=== PATIENT | male | born 1965 | race Hispanic/Latino ===

== ENCOUNTER 2020-01-21 23:38 | Observation (INO) | payer SELFPAY ==
[~2020-01-21] VITALS: Ht 177.8 cm; Wt 95.3 kg
--- OUTSIDE RECORDS SUMMARY | 2020-01-21 23:57 | XMS REPORT | Continuity of Care Document ---
Author Author [facility] Organization [facility] Address [address] [place] [address] Phone Unavailable Care Team Providers Care Wildlife Conservationist Name Role Phone Unavailable Unavailable Payers Payer Name Policy Type Policy Number Effective Date Expiration Date S ource Problems This patient has no known problems. Allergies, Adverse Reactions, Alerts Allergy Name Allergy Type Status Severity Reaction(s) Onset Date Inacti ve Date Treating Clinician Comments Source No Known Allergies DA Active U 2019-06-27 00:00:00 [facility] Medications This patient has no known medications. Procedures This patient has no known procedures. Results Test Description Test Time Test Comments Results Result Comments Source - XR KNEE 4 + V RT 2019-06-27 13:55:00 FAX: Antoni Ramirez MD [phone] [place]: St: REG FAX: Ava Kiran Name: SIOMARALLUVIAMIKE [facility] : 1965 Age/S: 54/M Regulo Nicholson Unit #: [id number] Loc: [place] [address] Phys: Ava Kiran [employer] Acct: [id number] Dis Date: Status: REG ER PHONE #: [phone] Exam Date: 06/27/2019 1321 FAX #: [phone] Reason: pain and swelling EXAMS: CPT CODE: [id number] XR KNEE 4 + V RT [id number] EXAM: Right knee, 4 views; INFORMATION: Painful swelling; FINDINGS: There is moderate narrowing of the medial compartment of the right knee joint. Small osteophytes along the cranial aspect of the patella. Otherwise, imaged bones are intact; no evidence of fracture or dislocation. No radiopaque foreign bodies. IMPRESSION: 1. Moderate osteoarthritis involving primarily the medial compartment of the right knee joint. 2. No evidence of acute traumatic changes. Location code: [facility] at 2402 Reported and signed by: Saran Mireles M.D. CC: Antoni Ramirez MD; Ava Kiran NP Technologist: Kortney ALVARADO(R) Trnscrd Date/Time/By: 06/27/2019 (6411) : By: Maria IsabelW Orig Print D/T: S: 06/27/2019 (9139) PAGE 1 Signed Report
[2020-01-22] VITALS (9 sets, daily range): BP systolic 108–128; BP diastolic 57–64
--- NOTE | 2020-01-22 00:10 | NUR ---
PATIENT RECEIVED FROM PRE STANDING ER. PATIENT IS RESTING IN BED, AAOX3. RESP EVEN AND UNLABORED. NO ACUTE DISTRESS NOTED. PATIENT DENIES OF ANY NAUSEA OR DISCOMFORT AT THIS TIME. ORIENTED TO ROOM. EDUCATED PT ABOUT FALL PRECAUTIONS. PT VERBALIZED UNDERSTANDING. CALL LIGHT WITH IN EASY REACH. INSTRUCTED PT TO USE CALL LIGHT FOR ALL THE NEEDS. BED IS LOW AND LOCKED. SIDE RAILS X2. BED ALARM IS ON. PT DENIES NEEDS AT THIS TIME. CONTINUE TO MONITOR CLOSELY.
--- NOTE | 2020-01-22 00:30 | NUR ---
NOTIFIED DR MOYA ABOUT THE CONSULTATION.
[2020-01-22] MEDS ORDERED: HYDROMORPHONE 1MG/1ML INJ IV PRN (00:45)
[2020-01-22] MEDS ORDERED: ONDANSETRON HCL INJ 2MG/ML 2ML 2 MG/ML VIAL IV PRN (00:45)
[2020-01-22] MEDS: SODIUM CHLORIDE 0.9% 1000ML 1,000 ML IV SCH ×2 (01:45→16:25)
[2020-01-22 06:16] LABS: BASOPHILS % 0.6 % (0.0-1.0); EOSINOPHILS # (AUTO) 0.2 (0.0-0.4); LYMPHOCYTES # (AUTO) 2.5 (1.0-3.2); MEAN CORPUSCULAR HEMOGLOBIN 36.6 pg (28-32); MEAN CORPUSCULAR HGB CONC 33.3 g/dL (31-35); MEAN CORPUSCULAR VOLUME 109.8 fL (81-99); MONOCYTES # (AUTO) 0.8 (0.2-0.8); MONOCYTES % 12.3 % (4.4-11.3); NEUTROPHILS # (AUTO) 3.1 (2.1-6.9); NEUTROPHILS % 45.8 % (38.7-80.0); RED BLOOD COUNT 2.46 x10e6/uL (4.3-5.7); RED CELL DISTRIBUTION WIDTH 14.6 % (11.7-14.4)
[2020-01-22 06:38] LABS: ALANINE AMINOTRANSFERASE 39 IU/L (0-55); ALBUMIN 2.1 g/dL (3.5-5.0); ALBUMIN/GLOBULIN RATIO 0.5 (0.8-2.0); ALKALINE PHOSPHATASE 109 IU/L (40-150); ANION GAP 6.1 mmol/L (8-16); BLOOD UREA NITROGEN 17 mg/dL (7-26); BUN/CREATININE RATIO 26 (6-25); CALCIUM 7.6 mg/dL (8.4-10.2); CARBON DIOXIDE 28 mmol/L (22-29); CHLORIDE 109 mmol/L (98-107); CREATININE, SERUM 0.66 mg/dL (0.72-1.25); EST GLOMERULAR FILTRATION RATE > 60 ML/MIN (60-); GLUCOSE 101 mg/dL (74-118); POTASSIUM 4.1 mmol/L (3.5-5.1); SODIUM 139 mmol/L (136-145)
--- NOTE | 2020-01-22 06:54 | NUR ---
RECEIVED BEDSIDE SHIFT REPORT FROM OFF GOING NURSE. PATIENT IS IN STABLE CONDITION, IV LINE PATENT. CALL LIGHT WITHIN REACH. BED IN THE LOWEST POSITION.
[2020-01-22] MEDS ORDERED: SODIUM CHLORIDE 0.9% 50ML 50 ML ONE ×2 (08:07→09:12)
[2020-01-22] MEDS ORDERED: IOPAMIDOL 370 MG/ML 200 ML INFUS..BTL INJ ONE ×2 (08:07→09:12)
[2020-01-22 08:08] LABS: PLATELET COUNT 71 x10e3/uL (140-360)
[2020-01-22] MEDS ORDERED: PANTOPRAZOLE 40 MG 10ML VIAL IV SCH (09:00)
--- NOTE | 2020-01-22 10:16 | Diagnostic Imaging Report ---
EXAM: CT Abdomen and Pelvis WITH contrast INDICATION: Anemia, possible GI bleeding. COMPARISON: None. TECHNIQUE: Abdomen and pelvis were scanned utilizing a multidetector helical scanner from the lung base to the pubic symphysis after administration of IV contrast. Coronal and sagittal reformations were obtained. Routine protocol was performed. Scan was performed during portal venous phase. IV CONTRAST: 100 cc of Isovue-370. ORAL CONTRAST: None. COMPLICATIONS: None RADIATION DOSE: Total DLP: 740.7 mGy*cm Estimated effective dose: (DLP x 0.015 x size factor) mSv CTDIvol has been reviewed. It is below the limits set by the Radiation Protocol Committee (RPC). FINDINGS: LINES and TUBES: None. LOWER THORAX: Mild patchy dependent atelectasis. There is a 3 mm groundglass nodule in the right middle lobe on series 2, image 4, likely infectious or inflammatory. HEPATOBILIARY: Hepatic steatosis with mildly nodular contour. No evidence of focal lesion. No biliary ductal dilation. GALLBLADDER: No radio-opaque stones or sludge. No wall thickening. SPLEEN: No splenomegaly. PANCREAS: No focal masses or ductal dilatation. ADRENALS: No adrenal nodules KIDNEYS/URETERS: Kidneys enhance symmetrically. No evidence of hydronephrosis, solid mass, or stone. GI TRACT: Apparent mild wall thickening within the proximal descending colon in an area of decompression on series 2, image 27. No surrounding inflammatory changes. No evidence of bowel obstruction. Normal appendix. PELVIC ORGANS/BLADDER: Unremarkable. LYMPH NODES: No lymphadenopathy. VESSELS: There are perigastric and perisplenic venous collaterals. There is a small splenorenal shunt. Mild scattered atherosclerotic arterial calcifications. PERITONEUM / RETROPERITONEUM: No free air or fluid. BONES AND SOFT TISSUES: No acute osseous abnormality. Mild degenerative disc changes in the lower thoracic and lumbar spine, most pronounced at L5-S1. Tiny fat-containing hiatal hernia. CONCLUSION: Apparent mild wall thickening in the proximal descending colon, likely secondary to decompression, but in the setting of melena, a follow-up colonoscopy is suggested to exclude underlying lesion. Cirrhosis with hepatic steatosis and findings of portal hypertension with perigastric and perisplenic varices. Signed by: Dr. Griffin Grady MD on 01/22/2020 10:13 AM
[2020-01-22] MEDS ORDERED: LIDOCAINE HCL 2% LOCAL INJ 5 ML SDV VIAL INJ ONE (15:18)
[2020-01-22] MEDS ORDERED: ETOMIDATE 2 MG/ML 10 ML INJ IV ONE (15:18)
[2020-01-22] MEDS ORDERED: PROPOFOL IV EMULSION 10 MG/ML 20 ML VIAL ONE (15:18)
--- NOTE | 2020-01-22 15:22 | NUR ---
GAVE PACKET OF INFORMATION WITH COMM[employer]ITY [employer] FOR ASSISTANCE WITH LOW TO NO INCOME TO PATIENT. RESOURCES THAT PATIENT MAY BE ABLE TO FOLLOW UP UPON DISCHARGE. PT EDUCATED ON EACH RESOURCE AND UNDERSTANDING HOW TO FOLLOW UP TO SEE IF QUALIFIED FOR EACH RESOURCE.
--- NOTE | 2020-01-22 15:40 | NUR ---
PATIENT BACK TO UNIT AT THIS TIME.
--- NOTE | 2020-01-22 16:20 | Operative Report ---
DATE OF PROCEDURE: 01/22/2020 SURGEON: Ian Badillo MD PROCEDURE: EGD with biopsies. INDICATION FOR EGD: Hematemesis. MEDICATIONS: The patient was done under MAC, please see anesthesiologist's note. PROCEDURE IN DETAIL: With the patient in left lateral decubitus position, the flexible fiberoptic Olympus gastroscope was introduced into the esophagus under direct visualization without any difficulty. The esophagus appeared to be within normal limits. The scope was then advanced with ease into the stomach and the mucosa overlying the antrum and the body revealed some diffuse erythema and moderate edema. Biopsies were obtained and sent to stain for H. pylori. There was some mild portal hypertensive gastropathy changes. The pylorus was intubated with ease and the scope was advanced all the way to the second portion of the duodenum. Mucosa overlying the proximal second portion appeared to be within normal limits. The mucosa overlying the duodenal bulb revealed some patchy intense erythema. The scope was then withdrawn back into the stomach and retroflexed, mucosa overlying the fundus and the cardia appeared to be within normal limits. The scope was then straightened out, it was subsequently withdrawn. The patient tolerated the procedure well. IMPRESSION: 1. Normal esophagus. 2. Gastritis, biopsied, biopsies sent to stain for H. pylori. 3. Portal hypertensive gastropathy, mild. 4. Bulbar duodenitis. PLAN: 1. Follow up histology. 2. Initiate Protonix 40 mg one p.o. q.a.m. a.c. 3. Start clear liquid diet. Ian Badillo MD [facility] [place] /[id number] cc: Aniya Solo MD
[2020-01-22] MEDS: PANTOPRAZOLE 40 MG 10ML VIAL IV SCH (16:25)
--- NOTE | 2020-01-22 19:34 | NUR ---
BEDSIDE SHIFT REPORT GIVEN TO ONCOMING NURSE. PATIENT IS RESTING IN BED. NO ACUTE DISTRESS NOTED. CALL LIGHT WITHIN REACH. BED IN THE LOWEST POSITION.
--- NOTE | 2020-01-22 21:30 | NUR ---
PATIENT IS RESTING IN BED COMFORTABLY AOX4, NO SIGNS OF DISTRESS NOTED. IV FLUIDS ARE RUNNING AT ORDERED RATE, AND PATIENT VOICES NO PAIN AT THIS TIME. BED IS IN LOW POSITION, BOTH SIDE RAILS ARE UP, CALL LIGHT IS WITHIN EASY REACH, WILL CONTINUE TO MONITOR.
[2020-01-23] VITALS (8 sets, daily range): BP systolic 111–153; BP diastolic 56–61
[2020-01-23] MEDS: SODIUM CHLORIDE 0.9% 1000ML 1,000 ML IV SCH ×2 (04:52→17:11)
--- NOTE | 2020-01-23 07:15 | NUR ---
The pt. is in bed awake and alert. The pt denies pain or discomfort and inquires about discharge.
[2020-01-23] MEDS: PANTOPRAZOLE 40 MG 10ML VIAL IV SCH ×2 (09:49→17:11)
--- NOTE | 2020-01-23 11:33 | NUR ---
Spoke with Dr. Mahoney and notified him that pt is Day 2 observation. He stated he will assess him and decides on dc plan.
[2020-01-23 17:10] LABS: BASOPHILS # (AUTO) 0.1 (0.0-0.1); BASOPHILS % 1.1 % (0.0-1.0); EOSINOPHILS # (AUTO) 0.2 (0.0-0.4); EOSINOPHILS % 4.2 % (0.0-6.0); HEMOGLOBIN 9.1 g/dL (14.0-18.0); LYMPHOCYTES # (AUTO) 1.8 (1.0-3.2); LYMPHOCYTES % 40.3 % (18.0-39.1); MEAN CORPUSCULAR HEMOGLOBIN 35.7 pg (28-32); MEAN CORPUSCULAR HGB CONC 32.5 g/dL (31-35); MEAN CORPUSCULAR VOLUME 109.8 fL (81-99); MONOCYTES # (AUTO) 0.6 (0.2-0.8); MONOCYTES % 13.8 % (4.4-11.3); NEUTROPHILS # (AUTO) 1.8 (2.1-6.9); NEUTROPHILS % 40.2 % (38.7-80.0); PLATELET COUNT 67 x10e3/uL (140-360); RED BLOOD COUNT 2.55 x10e6/uL (4.3-5.7); RED CELL DISTRIBUTION WIDTH 14.2 % (11.7-14.4)
--- NOTE | 2020-01-23 19:21 | Discharge Summary ---
ADDENDUM: The patient told to abstain from drinking due to the cirrhosis. MD DENNY Corona/LEIGH /[id number]
--- NOTE | 2020-01-23 21:01 | Discharge Summary ---
HISTORY: A 54-year-old male, came here with no past medical history apparently, came here with vomiting while he was working outside in extreme heat, history of feeling sick. He vomited and he saw some blood in the vomit. The patient's symptoms are completely gone. He is tolerating diet. He had an EGD, which showed normal esophagus, gastritis, portal hypertensive gastropathy, which is mild, and bulbar duodenitis. He was seen by Dr. Ian Badillo, Gastroenterology, who recommended to continue Protonix and clear liquid diet. PHYSICAL EXAMINATION: HEART: Showed regular rhythm. Normal S1 and S2 sound. LUNGS: Clear bilaterally. ABDOMEN: Soft. FINAL IMPRESSION: 1. Vomiting with some mild hematemesis. 2. Acute anemia. 3. Portal hypertension, most likely secondary to cirrhosis. 4. Gastritis. PLAN OF TREATMENT: We are going to discharge him home with Protonix 40 mg p.o. twice a day. We are going to give him low-dose propranolol 20 mg twice a day due to the portal hypertension. The patient has to abstain from drinking. Tentative discharge today. We are going to do another CBC today, the hemoglobin is more than 7.5. The patient can go home today. The last BMP showed sodium 139, potassium 4.1, chloride 109, CO2 of 28, BUN 17, creatinine 0.6, glucose 101. On the CBC; white blood count 6.66, hemoglobin 9.0, hematocrit 27.0, and platelet count 71,000. AST 59, ALT 39, total bilirubin 2.5, alkaline phosphatase 109. Another diagnosis is most likely cirrhosis of the liver as a result for portal hypertension and hepatic steatosis with mild nodular contour. No evidence of focal lesion or biliary ductal dilatation. So, he has cirrhosis with hepatic steatosis. Finally, portal hypertension with perigastric and perisplenic varices seen on CAT scan, apparent mild wall thickening in the proximal ascending colon, likely secondary to the compression by . Followup colonoscopy suggested to exclude underlying lesion. Follow up with Dr. Sosa as an outpatient. MD DENNY Corona/MODL /[id number]
[2020-01-23 21:40] LABS: MONOCYTES % (MANUAL) 14 % (3.4-9.0); NEUTROPHILS % (MANUAL) 43 % (40-74)
[2020-01-23 21:41] LABS: EOSINOPHILS % (MANUAL) 3 % (0-7); LYMPHOCYTES % (MANUAL) 40 % (19-48)
[2020-01-23 21:44] LABS: PLATELET ESTIMATE MODERATELY DECREASED; PLATELET MORPHOLOGY COMMENT NORMAL
[2020-01-23 21:45] LABS: RBC MORPHOLOGY COMMENT ABNORMAL
[2020-01-24] VITALS: BP 124/60
[2020-01-24 04:00] VITALS: BP 122/71
[2020-01-24] MEDS: SODIUM CHLORIDE 0.9% 1000ML 1,000 ML IV SCH (06:16)
--- NOTE | 2020-01-24 07:00 | NUR ---
Day 3 OBS: Spoke to Yamila SU. Pt is to DC today after this morning lab results seen by Dr. Josefa Badillo.
[2020-01-24 07:25] LABS: HEMATOCRIT 28.7 % (38.2-49.6); HEMOGLOBIN 9.4 g/dL (14.0-18.0)
[2020-01-24 08:52] VITALS: BP 119/57
[2020-01-24] MEDS: PANTOPRAZOLE 40 MG 10ML VIAL IV SCH (09:09)
[2020-01-24 10:34] VITALS: BP 149/103
--- NOTE | 2020-01-24 11:25 | NUR ---
The pt. has been discharged after ok with Dr. Katherine Badillo. The pt. received prescriptions and follow up instructions. The pt. reports no insurance or PCP and had information on how and where to access follow up care. He reports he has a sister who can access care. The spoke with the pt. and advised him to stop drinking and this continuity writer reinforced the teaching.
== END 2020-01-24 11:15 | disposition home or self-care (01) ==
LOC: MED/SURG2 23:45
PROVIDERS: ADMIT Internal Medicine; ATTEND Internal Medicine
DX: K29.51 Unspecified chronic gastritis with bleeding (principal); K76.6 Portal hypertension; D64.9 Anemia, unspecified; K31.89 Other diseases of stomach and duodenum; K29.80 Duodenitis without bleeding; K70.30 Alcoholic cirrhosis of liver without ascites; F10.10 Alcohol abuse, uncomplicated; I86.4 Gastric varices; Z11.59 Encounter for screening for other viral diseases
CPT/HCPCS: 36415; 43239; 74177; 80053; 85014; 85018; 85025; 88305; 88312; G0378; J2001; J7030; Q9967; U0002